=== PATIENT | female | born 1985 | race Caucasian/White ===

== ENCOUNTER → 2019-03-01 11:52 | Outpatient (CLI) | payer OTHER, SELFPAY | PROVIDERS: Family Provider Obstetrics & Gynecology; PCP Family Medicine; Visit Provider Physician Assistant | DX: J02.9 Acute pharyngitis, unspecified (principal) | CPT/HCPCS: 87070; 87077 ==

== ENCOUNTER → 2020-02-28 11:21 | Outpatient (CLI) | payer OTHER, SELFPAY ==
[2020-02-28 12:56] LABS: HCG Quantitative /Beta subunit 738.1 mIU/mL
== END ==
PROVIDERS: Family Provider Obstetrics & Gynecology; PCP Family Medicine; Referring Provider Family Medicine; Visit Provider Family Medicine
DX: Z32.01 Encounter for pregnancy test, result positive (principal)
CPT/HCPCS: 36415; 84702

== ENCOUNTER → 2020-03-05 09:16 | Outpatient (CLI) | payer OTHER, SELFPAY ==
[2020-03-05 13:09] LABS: HCG Quantitative /Beta subunit 5086.1 mIU/mL
== END ==
PROVIDERS: Family Provider Obstetrics & Gynecology; PCP Family Medicine; Referring Provider Family Medicine; Visit Provider Family Medicine
DX: Z34.90 Encounter for supervision of normal pregnancy, unspecified, unspecified trimester (principal)
CPT/HCPCS: 36415; 84702

== ENCOUNTER → 2020-03-21 10:17 | Outpatient (CLI) | payer OTHER, SELFPAY ==
[2020-03-21 12:28] LABS: Appearance Urine UA CLEAR; Bilirubin Urine UA NEGATIVE (NEGATIVE); Color Urine UA YELLOW; Glucose Urine UA NEGATIVE (Negative); Ketones Urine UA NEGATIVE (NEGATIVE); Leukocyte Esterase Urine UA NEGATIVE (NEGATIVE); Nitrite Urine UA NEGATIVE (Negative); Occult Blood Urine UA NEGATIVE (Negative); Protein Urine UA NEGATIVE (Negative); Urobilinogen Urine UA 0.2 E.U./dL (0.2)
[2020-03-21 12:30] LABS: Add Manual Diff / Slide Review NO; Basophils Absolute Auto 0 /uL (0-100); Basophils Percent Auto 0.7 % (0-2); Eosinophils Absolute Auto 100 /uL (0-450); Eosinophils Percent Auto 1.1 % (2-4); Hematocrit 38.5 % (36-46); Hemoglobin 12.8 g/dL (12.0-16.0); Lymphocytes Absolute Auto 2100 /uL (1100-4500); Lymphocytes Percent Auto 30.9 % (25-40); Mean Corpuscular HGB Conc 33.4 % (30-36); Mean Corpuscular Hemoglobin 29.3 PG (26-34); Mean Corpuscular Volume 87.8 fL (80-100); Monocytes Absolute Auto 600 /uL (0-900); Monocytes Percent Auto 8.4 % (3-14); Neutrophils Absolute Auto 4000 /uL (1500-7000); Neutrophils Percent Auto 58.9 % (50-75); Platelet Count 209 X10^3/uL (150-400); Red Blood Cell Count 4.38 X10^6/uL (4.0-5.2); Red Cell Distribution Width 13.4 % (11.6-14.8); White Blood Cell Count 6.8 X10^3/uL (4.5-11.0)
[2020-03-21 12:40] LABS: Hepatitis B Surface Antigen NEGATIVE s/c (NEGATIVE)
[2020-03-21 12:55] LABS: HIV 1 & 2 Ab/Ag 4th Gen Combo NEGATIVE (NEGATIVE); Hep C Virus Ab w/Reflex Quant NEGATIVE s/c (NEGATIVE)
[2020-03-22 04:08] LABS: RPR Screen Non Reactive (Non Reactive)
[2020-03-22 09:08] LABS: Varicella IgG Antibody 1365 index (Immune >165)
== END ==
PROVIDERS: Family Provider Obstetrics & Gynecology; PCP Family Medicine; Referring Provider Family Medicine; Visit Provider Family Medicine
DX: Z34.90 Encounter for supervision of normal pregnancy, unspecified, unspecified trimester (principal)
CPT/HCPCS: 36415; 80055; 81003; 86787; 86803; 86850; 86900; 86901; 87086; 87389

== ENCOUNTER → 2020-04-10 11:01 | Outpatient (CLI) | payer OTHER, SELFPAY ==
--- NOTE | 2020-04-10 11:02 | DI.US.S_ITS ---
PROCEDURE: US TRANSVAGINAL COMPARISON: None. Technique: Endovaginal real-time scanning was performed with image documentation. INDICATIONS: MISCARRIAGE FINDINGS: Uterus measures 9.2 x 5.9 x 7.6 cm. Endometrial thickness measures 1-2 mm. There is a mid line posterior subserosal presumed hypoechoic fibroid measuring 1.3 x 0.9 x 1.0 cm (versus less likely adenomyosis. This could be more definitively characterized with MRI as clinically necessary). No IUD identified. Right ovary measures 3.1 x 2.0 x 2.4 cm and is unremarkable. Left ovary measures 3.7 x 1.3 x 2.2 cm and is unremarkable. IMPRESSION: No specific findings to suggest retained products of conception. Possible subserosal hypoechoic focus, probably fibroid versus adenomyosis. Dictated by: Thad Bowen M.D. on 04/10/2020 at 13:59 Approved by: Thad Bowen M.D. on 04/10/2020 at 14:13
== END ==
PROVIDERS: Family Provider Obstetrics & Gynecology; PCP Family Medicine; Referring Provider Family Medicine; Visit Provider Family Medicine
DX: O20.0 Threatened abortion (principal)
CPT/HCPCS: 76830

== ENCOUNTER → 2020-09-02 13:30 | Outpatient (CLI) | payer OTHER, SELFPAY ==
[2020-09-02 14:54] LABS: Follicle Stimulating Hormone 2.46 mIU/mL; Luteinizing Hormone 3.91 mIU/mL
[2020-09-02 16:35] LABS: Thyroid Stimulating Hormone 1.14 uIU/mL (0.47-4.68)
== END ==
PROVIDERS: Family Provider Obstetrics & Gynecology; PCP Family Medicine; Referring Provider Family Medicine; Visit Provider Family Medicine
DX: F32.9 Major depressive disorder, single episode, unspecified (principal); R45.86 Emotional lability; R53.83 Other fatigue
CPT/HCPCS: 36415; 83001; 83002; 84403; 84443

== ENCOUNTER → 2021-11-23 10:40 | Outpatient (CLI) | payer OTHER, SELFPAY ==
--- NOTE | 2021-11-23 | DI.US.S_ITS ---
PROCEDURE: US OB <= 14 WEEKS FETUS INDICATIONS: INITIAL DATING OUTSIDE/PRIOR DATING DATA: Last menstrual period (LMP): August 06, 2021. LMP-based estimated date of delivery (LAVELLE): May 13, 2022. First dating scan (date and location): [facility]; November 23, 2021. Estimated date of delivery (LAVELLE) from first dating scan: May 11, 2022. TECHNIQUE: Real-time scanning was performed of the fetus and maternal pelvic organs, with image documentation. COMPARISON: None. FINDINGS: Presentation: Vertex Placenta: Posterior, no previa Heart rate: 141 beats per Min BPD: 3.3 cm HC: 11.8 cm AC: 10 cm FL: 1.9 cm Gestational age today: 15 weeks, 6 days Maternal organs: Ovaries not well seen. IMPRESSION: Live single intrauterine gestation as detailed above. We strive to produce accurate, complete, and clear reports of imaging services. To assist us in improving patient care, this report was composed using standard report templates and voice recognition software. Therefore, it may contain abnormal punctuation, insertions and/or omissions. Occasional wrong-word or sound-alike substitutions may occur. Though we review the report and make efforts to correct it, we do recommend that the report be read carefully in proper context to recognize any text inaccuracies. Dictated by: Paul Cleaning M.D. on 11/23/2021 at 11:26 Approved by: Paul Cleaning M.D. on 11/23/2021 at 11:28
== END ==
PROVIDERS: Family Provider Obstetrics & Gynecology; PCP Nurse Practitioner Family; Referring Provider Nurse Practitioner Family; Visit Provider Nurse Practitioner Family
DX: Z36.87 Encounter for antenatal screening for uncertain dates (principal); Z3A.15 15 weeks gestation of pregnancy
CPT/HCPCS: 76801